=== PATIENT | male | born 2000 | race African-American/Black ===

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

== ENCOUNTER 2019-09-19 18:53 | Emergency (ER) | payer MEDICAID ==
[~2019-09-19] VITALS: Ht 167.6 cm; Wt 63.0 kg
[2019-09-19] MEDS ORDERED: VISCOUS LIDOCAINE 2% 15 ML UDC PO ONE (22:00)
[2019-09-19] MEDS ORDERED: MAGNESIUM/ALUMINUM HYDROXIDE/SIMETHICONE 30ML UDC PO ONE (22:00)
[2019-09-19] MEDS ORDERED: IBUPROFEN 600MG TABLET PO ONE (22:15)
[2019-09-20 00:10] VITALS: BP 113/66
== END 2019-09-20 00:11 | disposition home or self-care (01) ==
LOC: ER 18:53
DX: R07.9 Chest pain, unspecified (principal); R00.2 Palpitations; J45.909 Unspecified asthma, uncomplicated; F17.200 Nicotine dependence, unspecified, uncomplicated; F12.10 Cannabis abuse, uncomplicated
CPT/HCPCS: 36415; 84484; 93005; 99284; Z7610

== ENCOUNTER 2019-12-23 11:22 | Emergency (ER) | payer MEDICAID ==
[~2019-12-23] VITALS: Ht 182.9 cm; Wt 68.0 kg
[2019-12-23] MEDS ORDERED: SODIUM CHLORIDE 0.9% 1,000 ML IV ONE (12:27)
[2019-12-23] MEDS ORDERED: FAMOTIDINE 20MG/2ML VIAL IV STA (12:27)
[2019-12-23 12:42] LABS: HEMOGLOBIN. 15.7 g/dL (14.0-18.0); MEAN CORPUSCULAR HEMOGLOBIN 28.7 pg (28.0-32.0); MEAN CORPUSCULAR VOLUME 86.2 fL (80.0-94.0); MEAN PLATELET VOLUME 8.1 fl (7.4-10.4); PLATELET 292 x1000/uL (130-400); RED BLOOD CELL COUNT 5.45 mill/uL (4.7-6.1); RED CELL DISTRIBUTION WIDTH 13.6 % (11.6-14.6)
[2019-12-23 12:48] LABS: CHLORIDE 106 mEq/L (98-107)
[2019-12-23 12:49] LABS: INR 1.2; PROTHROMBIN TIME 12.7 sec (9.6-11.0)
[2019-12-23 13:03] LABS: PLATELET ESTIMATE NORMAL
[2019-12-23] MEDS ORDERED: IOHEXOL-300 100 ML BOTTLE ONE (13:50)
[2019-12-23 14:58] LABS: CLARITY URINE CLEAR (CLEAR); COLOR URINE YELLOW (YELLOW); KETONES URINE NEGATIVE (NEGATIVE); LEUKOCYTE ESTERASE URINE NEGATIVE (NEGATIVE); NITRITE URINE NEGATIVE (NEGATIVE); OCCULT BLOOD URINE NEGATIVE (NEGATIVE); PROTEIN URINE NEGATIVE (NEGATIVE); SPECIFIC GRAVITY URINE 1.072 (1.005-1.030)
[2019-12-23 15:17] VITALS: BP 122/78
== END 2019-12-23 15:15 | disposition home or self-care (01) ==
LOC: ER 11:22
DX: R10.9 Unspecified abdominal pain (principal); K59.00 Constipation, unspecified; J45.909 Unspecified asthma, uncomplicated
CPT/HCPCS: 36415; 74177; 80053; 81003; 83690; 85025; 85610; 96361; 96374; 99284; J3490; J7030; Q9967

== ENCOUNTER 2020-01-08 18:24 | Emergency (ER) | payer MEDICAID ==
[~2020-01-08] VITALS: Ht 182.9 cm; Wt 68.5 kg
[2020-01-08] MEDS ORDERED: IBUPROFEN 600MG TABLET PO ONE (19:30)
[2020-01-08 21:22] VITALS: BP 125/78
== END 2020-01-08 21:23 | disposition home or self-care (01) ==
LOC: ER 18:24
DX: S66.912A Strain of unspecified muscle, fascia and tendon at wrist and hand level, left hand, initial encounter (principal); S63.92XA Sprain of unspecified part of left wrist and hand, initial encounter; W22.01XA Walked into wall, initial encounter; Y93.89 Activity, other specified; Y92.018 Other place in single-family (private) house as the place of occurrence of the external cause
CPT/HCPCS: 29125; 73130; 99283

== ENCOUNTER 2020-01-09 20:35 | Emergency (ER) | payer MEDICAID ==
[~2020-01-09] VITALS: Ht 182.9 cm; Wt 66.0 kg
[2020-01-09] MEDS ORDERED: ACETAMINOPHEN WITH CODEINE 300/30MG TABLET PO STA (21:24)
[2020-01-09] MEDS ORDERED: IBUPROFEN 600MG TABLET PO STA (21:24)
[2020-01-09 22:15] VITALS: BP 115/71
== END 2020-01-09 22:16 | disposition home or self-care (01) ==
LOC: ER 20:35
DX: S33.5XXA Sprain of ligaments of lumbar spine, initial encounter (principal); S63.592A Other specified sprain of left wrist, initial encounter; J45.909 Unspecified asthma, uncomplicated; Y08.89XA Assault by other specified means, initial encounter; Y93.89 Activity, other specified; Y92.89 Other specified places as the place of occurrence of the external cause; Y99.8 Other external cause status
CPT/HCPCS: 29125; 99283

== ENCOUNTER 2020-01-18 19:41 | Emergency (ER) | payer MEDICAID ==
[~2020-01-18] VITALS: Ht 180.3 cm; Wt 69.0 kg
[2020-01-18 20:27] VITALS: BP 121/72
[2020-01-18] MEDS ORDERED: IBUPROFEN 600MG TABLET PO ONE (21:30)
== END 2020-01-18 22:39 | disposition home or self-care (01) ==
LOC: ER 19:41
DX: S43.401A Unspecified sprain of right shoulder joint, initial encounter (principal); S93.402A Sprain of unspecified ligament of left ankle, initial encounter; Y04.0XXA Assault by unarmed brawl or fight, initial encounter; Y93.89 Activity, other specified; Y92.018 Other place in single-family (private) house as the place of occurrence of the external cause
CPT/HCPCS: 73030; 73610; 73630; 99284; Z7610

== ENCOUNTER 2020-09-12 23:11 | Emergency (ER) | payer MEDICAID ==
[~2020-09-12] VITALS: Ht 182.9 cm; Wt 71.0 kg
[2020-09-13 00:43] VITALS: BP 116/73
== END 2020-09-13 00:44 | disposition home or self-care (01) ==
LOC: ER 23:11
DX: S01.511A Laceration without foreign body of lip, initial encounter (principal); Y04.0XXA Assault by unarmed brawl or fight, initial encounter; Y93.89 Activity, other specified; Y92.89 Other specified places as the place of occurrence of the external cause; Y99.8 Other external cause status
CPT/HCPCS: 99281

== ENCOUNTER 2020-12-20 17:53 | Emergency (ER) | payer MEDICAID ==
[~2020-12-20] VITALS: Ht 182.9 cm; Wt 70.0 kg
[2020-12-20] MEDS ORDERED: KETOROLAC 60MG/2ML VIAL IM ONE (19:15)
[2020-12-20 20:18] VITALS: BP 135/82
[2020-12-20] MEDS ORDERED: IBUP-1523 MT (20:56)
[2020-12-20] MEDS ORDERED: METH-773 MT (20:56)
== END 2020-12-20 22:08 | disposition home or self-care (01) ==
LOC: ER 17:53
DX: S16.1XXA Strain of muscle, fascia and tendon at neck level, initial encounter (principal); S46.911A Strain of unspecified muscle, fascia and tendon at shoulder and upper arm level, right arm, initial encounter; F12.10 Cannabis abuse, uncomplicated; X58.XXXA Exposure to other specified factors, initial encounter; Y93.89 Activity, other specified; Y92.89 Other specified places as the place of occurrence of the external cause; Y99.8 Other external cause status
CPT/HCPCS: 73030; 96372; 99283; J1885; L3670

== ENCOUNTER 2021-06-22 00:18 | Emergency (ER) | payer OTHER, MEDICAID ==
[~2021-06-22 00:18] MED LIST: IBUP-1523 MT; METH500T6 MT
== END 2021-06-22 03:07 | disposition left against medical advice (07) ==
LOC: ER 00:18
DX: R10.9 Unspecified abdominal pain (principal); Z53.21 Procedure and treatment not carried out due to patient leaving prior to being seen by health care provider

== ENCOUNTER 2021-12-21 21:31 | Emergency (ER) | payer MEDICAID, OTHER ==
[~2021-12-21] VITALS: Ht 182.9 cm; Wt 66.0 kg
[~2021-12-21 21:31] MED LIST changes: +METH-773 MT; -METH500T6 MT
[2021-12-22] MEDS ORDERED: KETOROLAC 30MG/ML VIAL IM ONE (00:15)
[2021-12-22] MEDS ORDERED: IBUP-2029 MT (02:00)
[2021-12-22 02:19] VITALS: BP 140/91
== END 2021-12-22 02:22 | disposition home or self-care (01) ==
LOC: ER 21:31
DX: M25.561 Pain in right knee (principal); M26.69 Other specified disorders of temporomandibular joint; F12.10 Cannabis abuse, uncomplicated; W10.8XXA Fall (on) (from) other stairs and steps, initial encounter; Y93.89 Activity, other specified; Y92.018 Other place in single-family (private) house as the place of occurrence of the external cause
CPT/HCPCS: 73562; 96372; 99283; J1885; L1830; Z7610

== ENCOUNTER 2022-03-01 08:50 | Emergency (ER) | payer MEDICAID ==
[~2022-03-01] VITALS: Ht 182.9 cm; Wt 68.0 kg
[~2022-03-01 08:50] MED LIST changes: +IBUP-2029 MT
[2022-03-01] MEDS ORDERED: METHYLPREDNISOLONE SOD SUCC 125 MG/2 ML VIAL IV STA (09:22)
[2022-03-01] MEDS ORDERED: DIPHENHYDRAMINE 50MG/ML VIAL IV ONE (09:30)
[2022-03-01] MEDS ORDERED: SODIUM CHLORIDE 0.9% 1,000 ML IV ONE (09:30)
[2022-03-01 10:42] LABS: BASOPHILS % 0.8 % (0.0-2.0); HEMATOCRIT. 45.2 % (42.0-52.0); HEMOGLOBIN. 14.7 g/dL (14.0-18.0); LYMPHOCYTES % 35.5 % (20.0-50.0); MEAN CORPUSCULAR HEMOGLOBIN 28.5 pg (28.0-32.0); MEAN CORPUSCULAR VOLUME 87.6 fL (80.0-94.0); MEAN PLATELET VOLUME 9.4 fl (7.4-10.4); MONOCYTES % 6.8 % (2.0-8.0); NEUTROPHILS % 48.9 % (40.0-76.0); PLATELET 268 x1000/uL (130-400); RED BLOOD CELL COUNT 5.16 mill/uL (4.7-6.1); RED CELL DISTRIBUTION WIDTH 13.2 % (11.6-14.6)
[2022-03-01 11:00] LABS: CHLORIDE 106 mEq/L (98-107)
[2022-03-01] MEDS ORDERED: DIPH25CA83 PO (12:43)
[2022-03-01] MEDS ORDERED: P50 MT (12:43)
[2022-03-01 13:10] VITALS: BP 121/65
== END 2022-03-01 13:52 | disposition home or self-care (01) ==
LOC: ER 11:02
DX: T78.3XXA Angioneurotic edema, initial encounter (principal); X58.XXXA Exposure to other specified factors, initial encounter; R22.0 Localized swelling, mass and lump, head; J45.909 Unspecified asthma, uncomplicated; F12.10 Cannabis abuse, uncomplicated
CPT/HCPCS: 36415; 80053; 85025; 96361; 96374; 96375; 99284; J1200; J2930; J7030

== ENCOUNTER 2022-03-05 20:22 | Emergency (ER) | payer MEDICAID ==
[~2022-03-05] VITALS: Ht 182.9 cm; Wt 71.0 kg
[~2022-03-05 20:22] MED LIST changes: +DIPH25CA83 PO; +P50 MT
[2022-03-05] MEDS ORDERED: ONDANSETRON HCL 4MG/2ML INJ IV ONE (22:45)
[2022-03-05] MEDS ORDERED: MORPHINE SULFATE 4 MG/ML CPJ (NOT FOR IM USE) IV ONE (22:45)
[2022-03-05] MEDS ORDERED: KETOROLAC 60MG/2ML VIAL IM ONE (23:15)
[2022-03-05] MEDS ORDERED: MIDAZOLAM HCL 2 MG/2 ML VIAL IM ONE (23:15)
[2022-03-05] MEDS ORDERED: MIDAZOLAM HCL 2 MG/2 ML VIAL IM NR (23:30)
[2022-03-06 02:00] VITALS: BP 117/68
== END 2022-03-06 03:06 | disposition home or self-care (01) ==
LOC: ER 20:22
DX: S03.00XA Dislocation of jaw, unspecified side, initial encounter (principal); F12.10 Cannabis abuse, uncomplicated; J45.909 Unspecified asthma, uncomplicated; Z79.899 Other long term (current) drug therapy; Z88.0 Allergy status to penicillin; X58.XXXA Exposure to other specified factors, initial encounter; Y93.89 Activity, other specified; Y92.89 Other specified places as the place of occurrence of the external cause; Y99.8 Other external cause status
CPT/HCPCS: 21480; 99152; 99285; J1885; J2250

== ENCOUNTER 2022-03-29 08:25 | Inpatient (IN) | payer MEDICAID ==
[~2022-03-29] VITALS: Ht 182.9 cm; Wt 73.9 kg
[2022-03-29] MEDS ORDERED: FAMOTIDINE 20MG/2ML VIAL IV STA (09:04)
[2022-03-29] MEDS ORDERED: METHYLPREDNISOLONE SOD SUCC 125 MG/2 ML VIAL IV ONE (09:15)
[2022-03-29] MEDS ORDERED: DIPHENHYDRAMINE 50MG/ML VIAL IV ONE (09:15)
[2022-03-29] MEDS ORDERED: SODIUM CHLORIDE 0.9% 1,000 ML IV ONE (09:15)
[2022-03-29 09:31] LABS: BASOPHILS % 0.8 % (0.0-2.0); EOSINOPHILS % 1.9 % (0.0-5.0); HEMATOCRIT. 46.7 % (42.0-52.0); HEMOGLOBIN. 15.2 g/dL (14.0-18.0); LYMPHOCYTES % 41.3 % (20.0-50.0); MEAN PLATELET VOLUME 8.3 fl (7.4-10.4); MONOCYTES % 9.6 % (2.0-8.0); NEUTROPHILS % 46.4 % (40.0-76.0); PLATELET 263 x1000/uL (130-400); RED BLOOD CELL COUNT 5.43 mill/uL (4.7-6.1)
[2022-03-29 09:40] LABS: CHLORIDE 105 mEq/L (98-107)
[2022-03-29 15:00] VITALS: BP 106/67
[2022-03-29 16:00] VITALS: BP 106/67
[2022-03-29] MEDS ORDERED: FAMOTIDINE 20MG/2ML VIAL IV SCH (16:00)
[2022-03-29] MEDS ORDERED: IPRATROPIUM/ALBUTEROL 0.5-3(2.5)MG/3ML NEB HHN PRN (16:00)
[2022-03-29] MEDS ORDERED: CLONIDINE 0.1MG TABLET PO PRN (16:00)
[2022-03-29] MEDS ORDERED: ACETAMINOPHEN 325MG TABLET PO PRN (16:00)
[2022-03-29] MEDS: ENOXAPARIN 40MG/0.4ML SYR SUBCUT SCH (17:18)
[2022-03-29] MEDS: METHYLPREDNISOLONE SOD SUCC 125 MG/2 ML VIAL IV SCH (17:19)
[2022-03-29] MEDS: FAMOTIDINE 20MG TABLET PO SCH (17:19)
[2022-03-29] MEDS: DIPHENHYDRAMINE 50MG/ML VIAL IV SCH ×2 (17:19→20:49)
[2022-03-29 20:00] VITALS: BP 132/71
[2022-03-29] MEDS ORDERED: SODIUM POLYSTYRENE SULFONATE 15 G/60 ML BOT PO NR (22:15)
[2022-03-30] VITALS: BP 111/68
[2022-03-30] MEDS: DIPHENHYDRAMINE 50MG/ML VIAL IV SCH ×6 (00:33→20:37)
[2022-03-30 04:00] VITALS: BP 124/72
[2022-03-30 06:23] LABS: BASOPHILS % 0.7 % (0.0-2.0); HEMOGLOBIN. 14.3 g/dL (14.0-18.0); LYMPHOCYTES % 18.9 % (20.0-50.0); MEAN CORPUSCULAR VOLUME 86.1 fL (80.0-94.0); MEAN PLATELET VOLUME 9.2 fl (7.4-10.4); MONOCYTES % 10.9 % (2.0-8.0); NEUTROPHILS % 69.5 % (40.0-76.0); PLATELET 279 x1000/uL (130-400); RED BLOOD CELL COUNT 5.11 mill/uL (4.7-6.1); RED CELL DISTRIBUTION WIDTH 13.1 % (11.6-14.6)
[2022-03-30 07:59] LABS: CHLORIDE 106 mEq/L (98-107)
[2022-03-30 08:00] VITALS: BP 124/62
[2022-03-30] MEDS: FAMOTIDINE 20MG TABLET PO SCH ×2 (08:25→17:37)
[2022-03-30] MEDS: METHYLPREDNISOLONE SOD SUCC 125 MG/2 ML VIAL IV SCH ×2 (08:25→17:37)
[2022-03-30] MEDS ORDERED: EPIN0.3P3 IM (11:54)
[2022-03-30] MEDS ORDERED: FAMO-287 MT (11:54)
[2022-03-30] MEDS ORDERED: P20 MT (11:54)
[2022-03-30] MEDS ORDERED: LORA10TA7 MT (11:54)
[2022-03-30 12:00] VITALS: BP 118/76
[2022-03-30 16:00] VITALS: BP 121/64
[2022-03-30] MEDS: ENOXAPARIN 40MG/0.4ML SYR SUBCUT SCH (17:37)
[2022-03-30 20:00] VITALS: BP 122/70
[2022-03-31] VITALS: BP 118/72
[2022-03-31] MEDS: DIPHENHYDRAMINE 50MG/ML VIAL IV SCH ×3 (00:01→08:56)
[2022-03-31 04:00] VITALS: BP 120/65
[2022-03-31 08:00] VITALS: BP 121/66
[2022-03-31] MEDS: METHYLPREDNISOLONE SOD SUCC 125 MG/2 ML VIAL IV SCH (08:56)
[2022-03-31] MEDS: FAMOTIDINE 20MG TABLET PO SCH (08:56)
[2022-03-31 12:00] VITALS: BP 114/76
[2022-03-31 12:25] VITALS: BP 114/76
== END 2022-03-31 13:40 | disposition home or self-care (01) | DRG 811 ==
LOC: ER 08:36 → EDBEDREQ 11:06 → EDBEDREQTM 11:06 → ENRESERV 13:02 → 7WST 15:39
PROVIDERS: ADMIT Internal Medicine; ATTEND Internal Medicine
DX: T78.3XXA Angioneurotic edema, initial encounter (principal); U07.1 COVID-19; E87.1 Hypo-osmolality and hyponatremia; E87.5 Hyperkalemia; F12.90 Cannabis use, unspecified, uncomplicated; J45.909 Unspecified asthma, uncomplicated; Z87.442 Personal history of urinary calculi; Z59.00 Homelessness unspecified; Z91.010 Allergy to peanuts; Z88.0 Allergy status to penicillin; Z91.013 Allergy to seafood; Z79.899 Other long term (current) drug therapy; Y92.89 Other specified places as the place of occurrence of the external cause
CPT/HCPCS: 36415; 71045; 80053; 82728; 84145; 85025; 86140; 87426; 93970; 99291; J1200; J1650; J2930; J3490; J7030

== ENCOUNTER 2025-06-29 09:18 | Emergency (ER) | payer MEDICAID ==
[~2025-06-29] VITALS: Ht 182.9 cm; Wt 83.0 kg
[~2025-06-29 09:18] MED LIST changes: +EPIN0.3P3 IM; +FAMO-287 MT; +IBUP-1455 MT; -IBUP-1523 MT; -IBUP-2029 MT; +LORA10TA7 MT; +P20 MT; -P50 MT
[2025-06-29 09:25] VITALS: TEMP 37.2; O2SAT 100
[2025-06-29] MEDS: IBUPROFEN 600MG TABLET PO ONE (09:53)
[2025-06-29] MEDS ORDERED: OCUFLX EACHEYE (09:59)
[2025-06-29] MEDS ORDERED: SULF1TAB48 MT (09:59)
[2025-06-29] MEDS ORDERED: AMOX1TAB16 MT (09:59)
[2025-06-29 10:12] VITALS: BP 128/84; PULSE 80; RESP 18; O2SAT 100
== END 2025-06-29 10:13 | disposition home or self-care (01) ==
LOC: ER 09:18
DX: L03.213 Periorbital cellulitis (principal); F12.90 Cannabis use, unspecified, uncomplicated; J45.909 Unspecified asthma, uncomplicated; Z88.0 Allergy status to penicillin; Z91.010 Allergy to peanuts; Z91.013 Allergy to seafood
CPT/HCPCS: 99283

== ENCOUNTER 2025-08-11 21:40 | Emergency (ER) | payer MEDICAID ==
[~2025-08-11] VITALS: Ht 190.5 cm; Wt 73.0 kg
[~2025-08-11 21:40] MED LIST changes: +AMOX1TAB16 MT; +OCUFLX EACHEYE; +SULF1TAB48 MT
[2025-08-11 21:55] VITALS: O2SAT 99
[2025-08-11 21:57] VITALS: BP 115/80; PULSE 84; RESP 20; TEMP 36.6; O2SAT 99
[2025-08-11 23:22] LABS: BASOPHILS % 0.7 % (0.0-2.0); EOSINOPHILS % 11.2 % (0.0-5.0); HEMATOCRIT. 44.0 % (42.0-52.0); HEMOGLOBIN. 14.0 g/dL (14.0-18.0); LYMPHOCYTES % 29.6 % (20.0-50.0); MEAN PLATELET VOLUME 8.4 fl (7.4-10.4); MONOCYTES % 6.9 % (2.0-8.0); NEUTROPHILS % 51.6 % (40.0-76.0); PLATELET 330 x1000/uL (130-400); RED BLOOD CELL COUNT 5.02 mill/uL (4.7-6.1); RED CELL DISTRIBUTION WIDTH 13.0 % (11.6-14.6)
[2025-08-11 23:48] LABS: CREATININE 1.2 mg/dL (0.6-1.3); UREA NITROGEN BLOOD 9 mg/dL (9-23)
[2025-08-11 23:50] LABS: ASPARTATE AMINOTRANSFERASE 19 IU/L (<34); BILIRUBIN DIRECT 0.2 mg/dL (<=3.0)
[2025-08-11 23:51] LABS: BILIRUBIN TOTAL 0.6 mg/dL (0.1-1.0); PROTEIN TOTAL 8.2 g/dL (6.0-8.3)
[2025-08-12 00:18] LABS: CLARITY URINE CLEAR (CLEAR); COLOR URINE YELLOW (YELLOW); GLUCOSE URINE NEGATIVE (NEGATIVE); KETONES URINE NEGATIVE (NEGATIVE); LEUKOCYTE ESTERASE URINE NEGATIVE (NEGATIVE); NITRITE URINE NEGATIVE (NEGATIVE); OCCULT BLOOD URINE NEGATIVE (NEGATIVE); PH URINE 5.5 (4.5-8.0); PROTEIN URINE NEGATIVE (NEGATIVE); SPECIFIC GRAVITY URINE 1.027 (1.005-1.030); UROBILINOGEN URINE 0.2 E.U./dL (0.2-1.0)
== END 2025-08-12 00:47 | disposition left against medical advice (07) ==
LOC: ER 21:40
DX: R10.84 Generalized abdominal pain (principal); Z53.29 Procedure and treatment not carried out because of patient's decision for other reasons; J45.909 Unspecified asthma, uncomplicated; F12.90 Cannabis use, unspecified, uncomplicated; Z79.899 Other long term (current) drug therapy; Z87.442 Personal history of urinary calculi; Z91.013 Allergy to seafood; Z88.0 Allergy status to penicillin; Z91.010 Allergy to peanuts
CPT/HCPCS: 36415; 80048; 80076; 81003; 85025; 99283

== ENCOUNTER 2025-08-14 14:55 | Emergency (ER) | payer MEDICAID ==
[~2025-08-14] VITALS: Ht 180.3 cm; Wt 75.0 kg
[2025-08-14 16:00] VITALS: O2SAT 99
[2025-08-14 20:13] LABS: BASOPHILS % 1.5 % (0.0-2.0); EOSINOPHILS % 9.7 % (0.0-5.0); HEMATOCRIT. 40.1 % (42.0-52.0); HEMOGLOBIN. 13.0 g/dL (14.0-18.0); LYMPHOCYTES % 32.8 % (20.0-50.0); MEAN PLATELET VOLUME 8.5 fl (7.4-10.4); MONOCYTES % 7.9 % (2.0-8.0); NEUTROPHILS % 48.1 % (40.0-76.0); PLATELET 348 x1000/uL (130-400); RED BLOOD CELL COUNT 4.60 mill/uL (4.7-6.1); RED CELL DISTRIBUTION WIDTH 13.2 % (11.6-14.6)
[2025-08-14 20:39] LABS: CREATININE 1.0 mg/dL (0.6-1.3); UREA NITROGEN BLOOD 7 mg/dL (9-23)
[2025-08-14 20:41] LABS: ASPARTATE AMINOTRANSFERASE 15 IU/L (<34); BILIRUBIN DIRECT 0.2 mg/dL (<=3.0); BILIRUBIN TOTAL 0.6 mg/dL (0.1-1.0); PROTEIN TOTAL 7.8 g/dL (6.0-8.3)
[2025-08-14] MEDS: ONDANSETRON 4MG ODT PO ONE (21:34)
[2025-08-14] MEDS: KETOROLAC 30MG/ML VIAL IM ONE (21:35)
[2025-08-14] MEDS ORDERED: METR-167 MT (22:04)
[2025-08-14] MEDS ORDERED: ACET-2708 MT (22:04)
[2025-08-14] MEDS ORDERED: CIPR-494 MT (22:04)
[2025-08-14 22:17] LABS: CLARITY URINE CLEAR (CLEAR); COLOR URINE YELLOW (YELLOW); GLUCOSE URINE NEGATIVE (NEGATIVE); KETONES URINE NEGATIVE (NEGATIVE); LEUKOCYTE ESTERASE URINE NEGATIVE (NEGATIVE); NITRITE URINE NEGATIVE (NEGATIVE); OCCULT BLOOD URINE NEGATIVE (NEGATIVE); PH URINE 5.5 (4.5-8.0); PROTEIN URINE NEGATIVE (NEGATIVE); SPECIFIC GRAVITY URINE 1.026 (1.005-1.030); UROBILINOGEN URINE 0.2 E.U./dL (0.2-1.0)
[2025-08-14 22:20] VITALS: BP 121/72; PULSE 77; RESP 14; TEMP 37.1; O2SAT 100
== END 2025-08-14 22:21 | disposition home or self-care (01) ==
LOC: ER 14:55
DX: K52.9 Noninfective gastroenteritis and colitis, unspecified (principal); R10.33 Periumbilical pain; J45.909 Unspecified asthma, uncomplicated; Z87.442 Personal history of urinary calculi; Z88.0 Allergy status to penicillin; Z91.010 Allergy to peanuts; Z91.013 Allergy to seafood
CPT/HCPCS: 99285; 74176; 80076; 80048; 81003; 83690; 85025; 36415; 96372; J1885; Q0162

== ENCOUNTER 2025-09-18 12:20 | Emergency (ER) | payer MEDICAID ==
[~2025-09-18] VITALS: Ht 182.9 cm; Wt 80.0 kg
[~2025-09-18 12:20] MED LIST changes: +ACET-2708 MT; +CIPR-494 MT; +METR-167 MT
[2025-09-18 13:27] VITALS: PULSE 101; RESP 18; O2SAT 95
[2025-09-18] MEDS: IPRATROPIUM BROMIDE (0.02%) 0.5MG/2.5ML NEB HHN SCH (13:27)
[2025-09-18] MEDS: ALBUTEROL (0.083%) 2.5MG/3ML NEB HHN SCH (13:27)
[2025-09-18 13:49] VITALS: PULSE 100; RESP 20; O2SAT 97
[2025-09-18 13:50] LABS: BASOPHILS % 0.4 % (0.0-2.0); EOSINOPHILS % 5.8 % (0.0-5.0); HEMATOCRIT. 44.0 % (42.0-52.0); HEMOGLOBIN. 14.2 g/dL (14.0-18.0); LYMPHOCYTES % 15.8 % (20.0-50.0); MEAN PLATELET VOLUME 8.3 fl (7.4-10.4); MONOCYTES % 8.9 % (2.0-8.0); NEUTROPHILS % 69.1 % (40.0-76.0); PLATELET 297 x1000/uL (130-400); RED BLOOD CELL COUNT 5.05 mill/uL (4.7-6.1); RED CELL DISTRIBUTION WIDTH 13.2 % (11.6-14.6)
[2025-09-18 14:04] LABS: CREATININE 1.0 mg/dL (0.6-1.3); UREA NITROGEN BLOOD < 5 mg/dL (9-23)
[2025-09-18 14:05] LABS: PROTEIN TOTAL 7.9 g/dL (6.0-8.3); TROPONIN I HIGH SENSITIVITY < 4 ng/L (3.0-53)
[2025-09-18 14:06] LABS: ASPARTATE AMINOTRANSFERASE 14 IU/L (<34)
[2025-09-18 14:07] LABS: BILIRUBIN DIRECT 0.3 mg/dL (<=3.0); BILIRUBIN TOTAL 0.8 mg/dL (0.1-1.0)
[2025-09-18 14:13] VITALS: PULSE 98; RESP 18; O2SAT 98
[2025-09-18] MEDS: DEXAMETHASONE 4MG TABLET PO ONE (14:25)
[2025-09-18 16:28] LABS: INFLUENZA TYPE A Presumptive Negative (Pres. Neg.); INFLUENZA TYPE B Presumptive Negative (Pres. Neg.)
[2025-09-18 16:29] LABS: RESPIRATORY SYNCYTIAL VIRUS Not Detected (Not Detectd)
[2025-09-18] MEDS ORDERED: IBUP-2028 MT (16:50)
[2025-09-18] MEDS ORDERED: BENZ100C86 MT (16:50)
[2025-09-18] MEDS ORDERED: ALBU90AE INH (16:50)
[2025-09-18 17:02] VITALS: BP 120/69; PULSE 94; RESP 18; TEMP 36.8; O2SAT 97
== END 2025-09-18 17:22 | disposition home or self-care (01) ==
LOC: ER 12:20
DX: J06.9 Acute upper respiratory infection, unspecified (principal); J45.901 Unspecified asthma with (acute) exacerbation; Z79.52 Long term (current) use of systemic steroids; Z87.442 Personal history of urinary calculi; Z88.0 Allergy status to penicillin; Z91.010 Allergy to peanuts; Z91.013 Allergy to seafood
CPT/HCPCS: 80076; 80048; 85025; 87420; 84484; 87804 ×2; 36415; 71045; 94640; 93005; 98960; 99285; 87426; J8540; Z7610 ×3; 94070; 94664

== ENCOUNTER 2025-10-17 04:43 | Emergency (ER) | payer MEDICAID ==
[~2025-10-17] VITALS: Ht 182.9 cm; Wt 69.0 kg
[~2025-10-17 04:43] MED LIST changes: +ALBU90AE INH; +BENZ100C86 MT; +IBUP-2028 MT
[2025-10-17 04:50] VITALS: TEMP 36.8; O2SAT 100
[2025-10-17] MEDS: IBUPROFEN 400MG TABLET PO ONE (05:08)
[2025-10-17] MEDS ORDERED: NAPR-1176 MT (05:37)
[2025-10-17 05:40] VITALS: BP 131/78; PULSE 82; RESP 16; O2SAT 95
== END 2025-10-17 05:40 | disposition home or self-care (01) ==
LOC: ER 04:43
DX: M79.645 Pain in left finger(s) (principal); F12.90 Cannabis use, unspecified, uncomplicated; J45.909 Unspecified asthma, uncomplicated; Z79.899 Other long term (current) drug therapy; Z79.1 Long term (current) use of non-steroidal anti-inflammatories (NSAID); Z88.0 Allergy status to penicillin; Z91.013 Allergy to seafood; Z91.010 Allergy to peanuts; W50.0XXA Accidental hit or strike by another person, initial encounter
CPT/HCPCS: 99283; 73130; 29125; A6449